=== PATIENT | female | born 1970 | race Caucasian/White ===

== ENCOUNTER → 2017-02-04 | Outpatient (CLI) | payer OTHER ==
[~2017-02-04] MED LIST: AMITRIPTYLINE H10 M1 PO; CELEXA20 MG PO; COZAAR 50MG50 MG/TAB PO; CRESTOR 10MG10 MG PO; DARVOCET N 101 UDTAB PO; DICLOFENAC SOD75 MG PO; EPA1000 MG PO; FLAX SEED OIL1000 MG PO; HYZAAR 25 MG-101 TAB PO; LISINOPRIL/HCTZ1 TA1 PO; NIACIN100 M1 PO; PEPCID 20MG TAB20 MG PO; PERCOCET 325 MG1 TA2 PO; PHENERGAN 25 TA25 MG PO; ULTRAM 50MG TAB50 MG PO; ULTRAM50 MG PO; VIT B 12; ZOLOFT 50MG50 MG PO; ZOLPIDEM10 MG PO
== END ==
LOC: COL.RAD 10:11
DX: Z02.71 Encounter for disability determination (principal); M19.071 Primary osteoarthritis, right ankle and foot; M25.561 Pain in right knee

== ENCOUNTER → 2018-11-20 | Outpatient (CLI) | payer BC | LOC: COL.RAD 13:15 | DX: R94.5 Abnormal results of liver function studies (principal); R10.11 Right upper quadrant pain; Z90.49 Acquired absence of other specified parts of digestive tract ==

== ENCOUNTER → 2020-03-25 | Outpatient (CLI) | payer BC | LOC: ZCOL.LAB 15:53 | DX: Z20.828 Contact with and (suspected) exposure to other viral communicable diseases (principal) ==

== ENCOUNTER → 2020-09-08 | Outpatient (CLI) | payer SELFPAY | LOC: MC.RAD 10:52 | DX: D17.22 Benign lipomatous neoplasm of skin and subcutaneous tissue of left arm (principal); D17.1 Benign lipomatous neoplasm of skin and subcutaneous tissue of trunk; N63.10 Unspecified lump in the right breast, unspecified quadrant ==

== ENCOUNTER 2021-06-19 14:58 | Emergency (ER) | payer SELFPAY ==
[~2021-06-19] VITALS: Ht 165.1 cm; Wt 90.9 kg
[2021-06-19 15:08] VITALS: BP 137/83; PULSE 74; TEMP 98.1
== END 2021-06-19 16:27 | disposition left against medical advice (07) ==
LOC: COL.ER 14:58
DX: R07.9 Chest pain, unspecified (principal)

== ENCOUNTER 2023-09-03 14:49 | Observation (INO) | payer OTHER ==
[~2023-09-03] VITALS: Ht 167.6 cm; Wt 104.5 kg
[2023-09-03] MEDS ORDERED: HYDROmorphone 0.5 MG/0.5 ML SYRINGE IV ONE ×2 (15:15→16:15)
[2023-09-03] MEDS ORDERED: Ondansetron 4 MG/2 ML VIAL IV ONE (15:15)
[2023-09-03 15:16] LABS: BASO # 0.1 K/mm3 (0.0-0.2); BASO % 0.5 % (0.0-2.0); EOS # 0.1 K/mm3 (0.0-0.7); EOS % 1.3 % (0.0-4.0); GRAN # 5.6 K/mm3 (1.4-6.5); GRAN % 59.4 % (42.2-75.2); HEMATOCRIT 42.4 % (37.0-47.0); HEMOGLOBIN 14.7 g/dl (12.5-16.0); LYMPH # 2.9 K/mm3 (1.2-3.4); LYMPH % 30.3 % (20.0-51.0); MEAN CELL VOLUME 88 fl (80.0-100.0); MEAN CORPUSCULAR HEMOGLOBIN 31 pg (27-31); MEAN CORPUSCULAR HGB CONC 35 g/dl (33.0-37.0); MEAN PLATELET VOLUME 10.5 fl (7.4-10.4); MONO # 0.8 K/mm3 (0.1-0.6); MONO % 8.1 % (1.7-9.3); PLATELET COUNT 351 K/mm3 (130-400); RED BLOOD COUNT 4.81 M/mm3 (4.10-5.30)
[2023-09-03 15:35] LABS: ACETAMINOPHEN < 7.0 ug/mL (10-30); ALANINE AMINOTRANSFERASE 19 U/L (0-55); ALBUMIN 4.5 gm/dL (3.5-5.0); ALKALINE PHOSPHATASE 122 U/L (40-150); ANION GAP 15 mmol/L (7-16); AST,SGOT 17 U/L (5-34); BILIRUBIN,TOTAL 0.7 mg/dL (0.2-1.2); BLOOD UREA NITROGEN 18 mg/dL (10-20); CALCIUM 12.2 mg/dL (8.4-10.2); CARBON DIOXIDE 21 mmol/L (22-29); CHLORIDE 103 mmol/L (98-107); CREATININE, serum 1.18 mg/dL (0.57-1.11); GLUCOSE 123 mg/dL (70-99); POTASSIUM 3.2 mmol/L (3.5-4.5); SODIUM 139 mmol/L (136-145); TOTAL PROTEIN 7.4 gm/dL (6.2-8.1)
[2023-09-03] MEDS ORDERED: LR 1,000 ML IV ONE (16:15)
[2023-09-03] MEDS ORDERED: Ondansetron 4 MG/2 ML VIAL IV PRN (17:15)
[2023-09-03] MEDS ORDERED: Acetaminophen 500 MG TAB PO SCH (17:15)
[2023-09-03] MEDS ORDERED: fentaNYL 50 MCG/ML 2 ML VIAL IV PRN (17:30)
[2023-09-03] MEDS ORDERED: HYDROmorphone 0.5 MG/0.5 ML SYRINGE IV PRN (17:30)
[2023-09-03 17:43] VITALS: BP 153/81; PULSE 100; TEMP 98
[2023-09-03 19:02] VITALS: BP 132/85; PULSE 97; TEMP 98.1
--- NOTE | 2023-09-03 19:10 | NUR ---
PATIENT SITTING UP IN BED WITH NO FAMILY PRESENT WITH NO ACUTE DISTRESS NOTED. PATIENT C/O PAIN. PATIENT VERBALIZED UNDERSTANDING THAT PAIN MEDICAITON WOULD BE GIVEN. INT TO RIGHT HAND INTACT WITH NO COMPLICATION NOTED. ICE PACK IN PLACE ON BACK. PATIENT DENIES ANY OTHER NEEDS. PATIENT CARE ASSUME FROM [facility] AT THIS TIME. BED IN LOW POSITION WITH WHEELS LOCKED WITH RAILS UP X3 AND CALL LIGHT WITHIN REACH. BED ALARM ON.
[2023-09-03 19:30] VITALS: BP 132/95; PULSE 97; TEMP 98.1
--- NOTE | 2023-09-03 19:36 | NUR ---
PATIENT C/O PAIN. IV FENTANYL GIVEN PER MD ORDER. PATIENT STATES PAIN LEVEL IS 9 ON A SCALE OF 0 TO 10. PATIENT TOLERATED WELL. PATIENT DENIES ANY OTHER NEEDS AT THIS TIME. AT BEDSIDE. BED IN LOW POSITION WITH WHEELS LOCKED WITH RAILS UP X3 AND CALL LIGHT WITHIN REACH. BED ALARM ON.
[2023-09-03] MEDS ORDERED: NS 1,000 ML IV SCH (19:45)
[2023-09-03] MEDS ORDERED: Cyclobenzaprine 10 MG TAB PO SCH (21:00)
[2023-09-03] MEDS ORDERED: Zolpidem 10 MG TAB PO SCH (21:00)
[2023-09-03] MEDS ORDERED: busPIRone 7.5 MG TABLET PO SCH (21:00)
[2023-09-03] MEDS ORDERED: Amitriptyline 50 MG TAB PO SCH (21:00)
--- NOTE | 2023-09-03 22:05 | NUR ---
PATIENT RESTING WITH EYES CLOSED IN BED WITH TV ON WITH AT BEDSIDE WITH NO ACUTE DISTRESS NOTED. PATIENT EASILY AROUSED TO NAME. PATIENT ON ROOM AIR. INT TO RIGHT HAND INTACT WITH NO COMPLICATIONS NOTED. PATIETN C/O PAIN. PATIENT STATES PAIN LEVEL IS 7 ON SCALE OF 0 TO 10. IV DILAUDID GIVEN PER MD ORDER. PATIENT TOLERATED WELL. PATIENT STATED HE PAIN GOAL WOULD BE 5 OR LESS IF POSSIBLE. MEDICATION ADMINISTRATION COMPLETED AT THIS TIME. PATIENT TOLERATED WELL. ALL NEEDS MET. BED IN LOW POSITION WITH WHEELS LOCKED WITH RAILS UP X3 AND CALL LIGHT WITHIN REACH. BED ALARM ON.
[2023-09-03 23:11] VITALS: BP 135/83; PULSE 80; TEMP 97.2
[2023-09-04] VITALS (12 sets, daily range): BP systolic 118–162; BP diastolic 58–88; PULSE 18–106; TEMP 97.2–98.3
--- NOTE | 2023-09-04 05:42 | NUR ---
PATIENT ASSISTED UP TO BSC WITH STAND BY ASSIST. PATIENT GAIT STEADY. PATIETN VOIDED 700 ML OF CLEAR ELI URINE. PATIENT DID OWN CONSTANTIN CARE. PATIENT ASSISTED BACK INTO BED AND HELPED TO REPOSITION FOR COMFORT. PATIENT C/O PAIN. IV FENTANYL GIVEN PER MD ORDER. PATIENT TOELRATED WELL. PATIENT GIVEN WIPE WITH HAND SANITIZOR AND PATIETN CLEANED HANDS. ALL NEEDS MET. BED IN LOW POSITION WITH WHEELS LOCKED WITH RAILS UP X3 AND CALL LIGHT WITHIN REACH.
[2023-09-04 06:40] LABS: BASO # 0.1 K/mm3 (0.0-0.2); BASO % 0.5 % (0.0-2.0); EOS # 0.2 K/mm3 (0.0-0.7); GRAN # 3.2 K/mm3 (1.4-6.5); GRAN % 34.6 % (42.2-75.2); HEMATOCRIT 37.7 % (37.0-47.0); LYMPH # 4.9 K/mm3 (1.2-3.4); LYMPH % 53.1 % (20.0-51.0); MEAN CELL VOLUME 90 fl (80.0-100.0); MEAN CORPUSCULAR HEMOGLOBIN 30 pg (27-31); MEAN CORPUSCULAR HGB CONC 33 g/dl (33.0-37.0); MEAN PLATELET VOLUME 10.8 fl (7.4-10.4); MONO # 0.9 K/mm3 (0.1-0.6); MONO % 9.5 % (1.7-9.3); PLATELET COUNT 301 K/mm3 (130-400); RED BLOOD COUNT 4.17 M/mm3 (4.10-5.30); REDCELL DISTRIBUTION WIDTH-CV 12.3 % (11.5-14.5)
[2023-09-04 06:56] LABS: CREATININE, serum 0.96 mg/dL (0.57-1.11)
[2023-09-04 07:24] LABS: HEMOGLOBIN 12.6 g/dl (12.5-16.0)
--- NOTE | 2023-09-04 08:30 | NUR ---
PATIENT ALERT AND ORIENTED X4. PATIENT REPORTS PAIN OF 8/10 AND WANT IT TREATED. PATIENT WAS HELPED TO BEDSIDE COMMODE. PATIENT REPORTS PAIN IS LOCATED IN LUMBAR/SACRAL AREA RADIATING TO RIGHT BUTTOCKS.PATIENT EXPRESSES "JUST BEING TIRED OF BEING IN PAIN AND WISHED IT CAN JUST BE GONE". PATIENT'S AT BEDSIDE. PATIENT SHIFT ASSESSMENT COMPLLETED. CALL LIGHT WITHIN REACH. BED AT LOWEST POSITION.
[2023-09-04] MEDS ORDERED: FLUoxetine 20 MG CAP PO SCH (09:00)
[2023-09-04] MEDS ORDERED: hydroCHLOROthiazide 12.5 MG CAP PO SCH (09:00)
[2023-09-04] MEDS ORDERED: Polyethylene Glycol 3350 17 GM PDS PO SCH (09:00)
[2023-09-04] MEDS ORDERED: Pravastatin 20 MG TAB PO SCH (09:00)
[2023-09-04] MEDS ORDERED: buPROPion XL (24-HR) 150 MG TAB PO SCH (09:00)
--- NOTE | 2023-09-04 10:38 | NUR ---
Initial visit; Patient thanked Clinical Informaticist for looking in on her and offering God's blessings and to keep her in her prayers. Clinical Informaticist will keep her and her in he prayers.
--- NOTE | 2023-09-04 11:10 | NUR ---
PATIENT WENT FOR EPIDURAL PROCEDURE.
--- NOTE | 2023-09-04 11:15 | NUR ---
Airplane Tube Builder met with patient and in room. Patient lives in [facility] with her Angelito ([phone]). Patient sees Dr. Thomas as her PCP and uses [facility]. Patient/ voice periodic difficulty affording medications but states that [facility] provides assistance coupons as needed. Patient is independent with ADLs, denies using any DME. Patient does not have an advanced directive completed but did ask for forms to complete. Patient's plan is to discharge to home when medically stable. Discharge Plan: Home
[2023-09-04] MEDS ORDERED: Midazolam 2 MG/2 ML VIAL IV SCH (11:24)
--- NOTE | 2023-09-04 11:25 | NUR ---
PT YELLING AND SCREAMING DURING PROCEDURE. TRYING TO GET HER TO USE DEEP BREATHING EXERCISES, NOT WORKING.
[2023-09-04] MEDS ORDERED: Triamcinolone 40 MG/ML 1 ML VIAL IJ SCH (11:53)
--- NOTE | 2023-09-04 12:00 | NUR ---
patient came back from epidural procedure with increased pain. patient rated it a 10/10. patient is crying and expresses feeling really bad. patient is refusing to turn im unable to assess her back. call light within reach. bed at lowest position.
--- NOTE | 2023-09-04 13:30 | NUR ---
test worker assisted patient to complete DPOA document. Original and copies provided to patient, copy placed on patient's chart.
--- NOTE | 2023-09-04 17:15 | NUR ---
Patient discharge instructions given.Patient questions were answered. Patient iv removed. patient escorted out of building by via [facility] [place] staff.
== END 2023-09-04 17:15 | disposition home or self-care (01) ==
LOC: COL.ER 14:49 → MEDICAL 17:17
PROVIDERS: Family Medicine; ADMIT Internal Medicine
DX: M54.9 Dorsalgia, unspecified (principal); N17.9 Acute kidney failure, unspecified; I10 Essential (primary) hypertension; E78.5 Hyperlipidemia, unspecified; F32.A Depression, unspecified; G47.00 Insomnia, unspecified; E66.9 Obesity, unspecified; Z68.32 Body mass index [BMI] 32.0-32.9, adult
CPT/HCPCS: G0378; J0665; J1170; J2250; J2405; J3010; J3301; J7030; J7120

== ENCOUNTER → 2023-09-03 | Outpatient (CLI) | payer OTHER ==
[~2023-09-03] VITALS: Ht 165.1 cm; Wt 103.6 kg
[~2023-09-03] MED LIST changes: +AMBIEN 10MG10 MG PO; +AMITRIPTYLINE H25 M1 PO; +BUSPIRONE HCL7.5 MG PO; +CELEBREX 200MG200 MG PO; +FLEXERIL 1010 MG/TAB PO; +HCTZ 25MG TAB25 MG PO; +MEDROL 4MG DOSPA4 MG PO; +NORCO 325 MG-51 TAB PO; +PRAVACHOL 40MG40 MG PO; +PROZAC 20MG20 MG PO; +WELLBUTRIN XL300 M1 PO
[2023-09-03 13:05] VITALS: BP 151/85; PULSE 91; TEMP 98.7
--- NOTE | 2023-09-03 14:20 | NUR ---
called to CT scanner, patient screaming stating it hurts, it hurts, report stefanie CT techs that procedure ended due to pt moving and yelling in pain, "my tailbone hurts" Dr Greene in room, pt diaphoretic, also hyperventilating, instruction pt to breath slower, pt did not want to move, but moved pt over on cart with transfer sheet, remains prone, states does not want to move, con't to yell/moan, explained to pt will go to holding area and get . Dr Greene talked with with update, pt states "knock me out" "I can't take the pain" reviewed history with on acute episodes of low back pain states this is what she does, and was in ER [facility]. 1 week ago where they medicated her and sent her home. Dr chua ordered MRI then epidual injection.Nurse explained to unable to medicate her for pain and ER was recommeded and he agreed. Report called to charge nurse on room availability and report of condition given. Pt taken to ER room [address] Greene, additional report given to nurse and history of condition. Pt con't to moan in pain, face flushed, at bedside
== END ==
LOC: COL.RAD 12:31
DX: M54.50 Low back pain, unspecified (principal); F41.9 Anxiety disorder, unspecified